=== PATIENT | female | born 1970 | race Two or more races ===

== ENCOUNTER → 2023-12-10 18:46 | Outpatient (REF) | payer OTHER, SELFPAY | LOC: MRI 18:46 | PROVIDERS: ATTENDING PHYSICIAN Internal Medicine | DX: E27.8 Other specified disorders of adrenal gland (principal) | CPT/HCPCS: 74183; A9575 ==

== ENCOUNTER → 2024-05-17 11:18 | Outpatient (REF) | payer OTHER, SELFPAY | LOC: MRI 3T 11:18 | PROVIDERS: ATTENDING PHYSICIAN Internal Medicine | DX: M54.16 Radiculopathy, lumbar region (principal) | CPT/HCPCS: 72148 ==